=== PATIENT | male | born 1975 | race Caucasian/White ===

== ENCOUNTER 2019-03-29 21:36 | Emergency (ER) | payer MEDICAID ==
[~2019-03-29] VITALS: Ht 182.9 cm; Wt 90.7 kg
[2019-03-29 23:03] LABS: Basophils # (auto) 0.1 uL; Basophils % (auto) 1.2 % (0.0-2.0); Eosinophils # (auto) 0.1 uL; Hematocrit 39.6 % (41.0-53.0); Hemoglobin 13.1 g/dL (13.5-17.5); Lymphocytes # (auto) 3.3 uL; Lymphocytes % (auto) 30.8 % (10.0-50.0); Monocytes # (auto) 1.1 uL; Monocytes % (auto) 10.4 % (0.0-12.0); Neutrophils # (auto) 6.1 uL; Neutrophils % (auto) 56.6 % (37.0-80.0); Platelet Count (auto) 313 10^3/uL (140-450); Red Blood Cells 4.34 10^6/uL (4.5-5.90); White Blood Cell 10.8 10^3/uL (4.4-10.8)
[2019-03-29] MEDS ORDERED: FOLIC ACID 1 MG, MULTIPLE VITAMIN 10 ML, MAGNESIUM SULF SDV 50% 8 MEQ, THIAMINE INJ 100... INJ SCH ×5 (23:30)
[2019-03-29 23:31] LABS: Alanine Aminotransferase 32 U/L (16-61); Albumin 3.9 g/dL (3.4-5.0); Anion Gap 14 (5-15); Aspartate Aminotransferase 41 U/L (15-37); BUN/Creatinine Ratio 14.3; Blood Urea Nitrogen 15 mg/dL (7-18); Calcium 7.9 mg/dL (8.5-10.1); Carbon Dioxide 21 mmol/L (21-32); Chloride 104 mmol/L (98-107); GFR African American 99 mL/min; GFR Non-African American 82 mL/min; Glucose 92 mg/dL (74-106); Potassium 3.1 mmol/L (3.5-5.1); Salicylate 1.8 mg/dL (2.8-20.0); Sodium 139 mmol/L (136-145)
[2019-03-29 23:34] LABS: Acetaminophen < 2.0 ug/mL (10-30)
[2019-03-29 23:36] LABS: Alkaline Phosphatase 62 U/L (45-117); Bilirubin, Total 0.5 mg/dL (0.2-1.0); Total Protein 7.9 g/dL (6.4-8.2)
[2019-03-29] MEDS ORDERED: MVI in SODIUM CHLORIDE 0.9% 1,010 ML ONE (23:52)
[2019-03-30 03:06] VITALS: BP 125/76
[2019-03-30] MEDS ORDERED: MULTCAP45 OR (21:53)
[2019-03-30] MEDS ORDERED: OLAN10TA29 PO (21:53)
[2019-03-30] MEDS ORDERED: BUPR200T PO (21:53)
== END 2019-03-30 03:41 | disposition home or self-care (01) ==
LOC: EDBD 21:36 → ER 21:40
DX: G92 Toxic encephalopathy (principal); F15.10 Other stimulant abuse, uncomplicated; R41.82 Altered mental status, unspecified; F10.129 Alcohol abuse with intoxication, unspecified; Y90.1 Blood alcohol level of 20-39 mg/100 ml
CPT/HCPCS: 36415; 80053; 80320; 80329; 83735; 84484; 85025; 94761; 96365; 99283; J3411; J3475; J7030

== ENCOUNTER 2019-03-30 19:35 | Emergency (ER) | payer MEDICAID ==
[~2019-03-30] VITALS: Ht 182.9 cm; Wt 86.2 kg
[2019-03-30] MEDS ORDERED: MULTCAP45 OR (21:53)
[2019-03-30] MEDS ORDERED: OLAN10TA29 PO (21:53)
[2019-03-30] MEDS ORDERED: BUPR200T PO (21:53)
[2019-03-30 22:13] LABS: Basophils # (auto) 0.1 uL; Basophils % (auto) 0.8 % (0.0-2.0); Eosinophils # (auto) 0.2 uL; Eosinophils % (auto) 3.4 % (0.0-7.0); Hematocrit 39.8 % (41.0-53.0); Hemoglobin 13.4 g/dL (13.5-17.5); Lymphocytes # (auto) 3.3 uL; Lymphocytes % (auto) 44.3 % (10.0-50.0); Mean Corpuscular Hemoglobin 30.9 pg (28.0-32.0); Mean Corpuscular Hgb Conc. 33.8 g/dL (32.0-36.0); Mean Corpuscular Volume 91.6 fL (80.0-100.0); Monocytes # (auto) 0.7 uL; Monocytes % (auto) 10.1 % (0.0-12.0); Neutrophils % (auto) 41.4 % (37.0-80.0); Nucleated Red Blood Cells % 0.1 %; Platelet Count (auto) 294 10^3/uL (140-450); Red Blood Cells 4.34 10^6/uL (4.5-5.90); Red Cell Distribution Width 14.1 % (11.8-14.3); White Blood Cell 7.4 10^3/uL (4.4-10.8)
[2019-03-30 22:19] LABS: Albumin 3.7 g/dL (3.4-5.0); Potassium 3.7 mmol/L (3.5-5.1)
[2019-03-30 22:22] LABS: BUN/Creatinine Ratio 12.9; Bilirubin, Total 0.4 mg/dL (0.2-1.0); Total Protein 7.4 g/dL (6.4-8.2)
[2019-03-30] MEDS ORDERED: ONDANSETRON ODT 4 MG TAB PO ONE (23:15)
[2019-03-30 23:46] LABS: Amphetamine Screen, Urine POSITIVE (NEGATIVE); Barbiturate Scree,Urine NEGATIVE (NEGATIVE); Benzodiazephine Screen, Urine POSITIVE (NEGATIVE); Cannabinoid Screen, Urine NEGATIVE (NEGATIVE); Cocaine Screen, Urine NEGATIVE (NEGATIVE); Opiate Scree,Urine NEGATIVE (NEGATIVE); Phencyclidine Screen, Urine NEGATIVE (NEGATIVE); Urine Bacteria FEW /hpf (None Seen); Urine Blood Negative /uL (Negative); Urine Specific Gravity 1.009 (1.001-1.035); Urine WBC 1 /hpf (0 - 3)
[2019-03-31] MEDS ORDERED: FOLIC ACID 1 MG, MULTIPLE VITAMIN 10 ML, MAGNESIUM SULF SDV 50% 8 MEQ, THIAMINE INJ 100... INJ SCH ×5 (01:45)
[2019-03-31] MEDS ORDERED: SODIUM CHLORIDE 0.9% 1,000 ML IV ONE (01:45)
[2019-03-31] MEDS ORDERED: MVI in SODIUM CHLORIDE 0.9% 1,010 ML ONE (03:02)
[2019-03-31] MEDS ORDERED: THIAMINE 100mg/ml INJ (200mg/2ml VIAL) ONE (03:02)
[2019-03-31] MEDS ORDERED: FOLIC ACID 1 MG TAB ONE (03:02)
[2019-03-31] MEDS ORDERED: ONDANSETRON ODT 4 MG TAB PO PRN (07:45)
[2019-03-31] MEDS: LORazepam 0.5 MG TAB PO PRN (08:34)
[2019-04-01] MEDS: LORazepam 0.5 MG TAB PO PRN ×2 (07:06→20:36)
[2019-04-01] MEDS ORDERED: OLANZapine 5 MG TAB PO PRN (18:45)
[2019-04-02 10:07] VITALS: BP 99/58
== END 2019-04-02 10:28 | disposition short-term general hospital (02) ==
LOC: ER 19:35
DX: R45.851 Suicidal ideations (principal); F10.229 Alcohol dependence with intoxication, unspecified
CPT/HCPCS: 36415; 71045; 80053; 80307; 80320; 81001; 85025; 93005; 96365; 99285; Q0162

== ENCOUNTER 2019-06-28 11:11 | Inpatient (IN) | payer MEDICAID ==
[~2019-06-28] VITALS: Ht 182.9 cm; Wt 86.6 kg
[~2019-06-28 11:11] MED LIST: BUPR200T PO; MULTCAP45 OR; OLAN10TA29 PO
[2019-06-28] MEDS ORDERED: SODIUM CHLORIDE 0.9% 1,000 ML IVB ONE (11:37)
[2019-06-28] MEDS ORDERED: THIAMINE 100mg/ml INJ (200mg/2ml VIAL) IV ONE (11:45)
[2019-06-28] MEDS ORDERED: ONDANSETRON HCL 4 MG/2 ML VIAL IV ONE (11:45)
[2019-06-28 12:08] LABS: Basophils # (auto) 0 uL; Basophils % (auto) 0.5 % (0.0-2.0); Eosinophils # (auto) 0 uL; Eosinophils % (auto) 0.6 % (0.0-7.0); Hematocrit 42.5 % (41.0-53.0); Hemoglobin 14.4 g/dL (13.5-17.5); Lymphocytes % (auto) 36.8 % (10.0-50.0); Mean Corpuscular Hemoglobin 31.2 pg (28.0-32.0); Mean Corpuscular Hgb Conc. 33.8 g/dL (32.0-36.0); Mean Corpuscular Volume 92.2 fL (80.0-100.0); Monocytes # (auto) 0.9 uL; Monocytes % (auto) 10.5 % (0.0-12.0); Neutrophils # (auto) 4.2 uL; Neutrophils % (auto) 51.6 % (37.0-80.0); Platelet Count (auto) 307 10^3/uL (140-450); Red Blood Cells 4.61 10^6/uL (4.5-5.90); Red Cell Distribution Width 15.5 % (11.8-14.3); White Blood Cell 8.1 10^3/uL (4.4-10.8)
[2019-06-28] MEDS ORDERED: LORazepam 2MG/ML-1ML VIAL IV ONE (12:30)
[2019-06-28] MEDS ORDERED: cefTRIAXone 1GM/50ML D5W 50 ML IV ONE (12:30)
[2019-06-28 12:38] LABS: Calcium 8.4 mg/dL (8.5-10.1); Potassium 3.9 mmol/L (3.5-5.1)
[2019-06-28 12:40] LABS: Albumin 3.9 g/dL (3.4-5.0); BUN/Creatinine Ratio 13.6; Magnesium 2.3 mg/dL (1.6-2.6)
[2019-06-28 12:42] LABS: Salicylate < 1.7 mg/dL (2.8-20.0)
[2019-06-28 12:43] LABS: Bilirubin, Total 0.3 mg/dL (0.2-1.0)
[2019-06-28 12:44] LABS: Acetaminophen < 2.0 ug/mL (10-30)
[2019-06-28] MEDS: FOLIC ACID 1 MG, MULTIPLE VITAMIN 10 ML, MAGNESIUM SULF SDV 50% 8 MEQ, THIAMINE INJ 100... INJ SCH ×5 (13:05)
[2019-06-28] MEDS ORDERED: NITROGLYCERIN 0.4 MG SL TAB SL PRN (16:30)
[2019-06-28] MEDS ORDERED: LORazepam 2MG/ML-1ML VIAL IV PRN (16:30)
[2019-06-28] MEDS ORDERED: HYDROcodone-ACET 5/325MG TAB PO PRN (16:30)
[2019-06-28] MEDS ORDERED: ACETAMINOPHEN 500 MG TAB PO PRN (16:30)
[2019-06-28] MEDS ORDERED: MORPHINE SULF INJ 2 MG/ML SYRINGE 1ML IV PRN (16:30)
[2019-06-28] MEDS ORDERED: AZITHROMYCIN 250 MG TAB PO ONE (16:45)
[2019-06-28 17:50] VITALS: BP 124/88
--- NOTE | 2019-06-28 18:13 | NUR ---
PT ARRIVED FROM ER ABOUT 1750. A/O X 4. ANSWERED QUESTIONS APPROPRIATELY, SITTER IS AT BEDSIDE. COOPERATIVE. BANANA BAG RUNNING . ORIENTED TO ROOM AND CALL ADAMES. WILL CONTINUE TO MONITOR.
--- NOTE | 2019-06-28 18:51 | NUR ---
WHEN ASKED IF PT WAS/ IS SUICIDAL, HE STATED "YES. I WOULD JUST NOT EAT OR DRINK AND OD ON DRUGS TILL I ". INFORMED PT THAT A TELEPSYCH WAS ORDERED. PT STATED HE HAS HAD ONE IN THE PAST AND DOES NOT WISH TO HAVE ONE AGAIN. SITTER REMAINS AT BEDSIDE.
--- NOTE | 2019-06-28 20:00 | NUR ---
OPENING NOTE RECEIVED REPORT FROM DAYSHIFT RN. ASSUMING ROLE OF CARE OF PATIENT AT THIS TIME. PATIENT SHOWING NO SIGN OF DISTRESS, SHORTNESS OF BREATH, AND PATIENT DENIES ANY PAIN AT THIS TIME. PATIENT EDUCATED ON PLAN OF CARE FOR THE NIGHT AND PATIENT VERBALIZED UNDERSTANDING. EXPLAINED TO PATIENT THAT THERE WERE ORDERS FOR A TELE PSYCH CONSULT. PATIENT AT THIS TIME TIME IS ALERT AND ORIENTED BUT REFUSES TO DO A CONSULT AT THIS TIME. BED LOWERED, CALL LIGHT WITHIN REACH, AND PATIENT WILL BE ROUNDED ON EVERY HOUR AND NEEDED.
[2019-06-28 22:00] VITALS: BP 111/72
[2019-06-29 05:00] VITALS: BP 103/69
--- NOTE | 2019-06-29 07:50 | NUR ---
Opening Shift Note Assumed care of patient, awake but very drowsy. No S/S of distress/SOB or pain. Instructed on POC and to call for assist PRN, will continue to monitor for changes Q1hr and PRN.
[2019-06-29 08:00] VITALS: BP 108/68
[2019-06-29] MEDS: ONDANSETRON HCL 4 MG/2 ML VIAL IV PRN ×2 (08:08→19:33)
[2019-06-29] MEDS: AZITHROMYCIN 250 MG TAB PO SCH (09:46)
[2019-06-29] MEDS: FAMOTIDINE 20 MG TAB PO SCH (09:47)
[2019-06-29] MEDS ORDERED: OLANZapine 5 MG TAB PO SCH (10:00)
--- NOTE | 2019-06-29 11:12 | NUR ---
Rounding Dr. Santana at bedside. Patient agrees to do tele psych.
[2019-06-29] MEDS: OLANZapine 5 MG TAB PO SCH (11:30)
--- NOTE | 2019-06-29 13:00 | NUR ---
Pt refused afternoon vitals @1300. Stated he was not feeling well and wanted to sleep.
[2019-06-29] MEDS: FOLIC ACID 1 MG, MULTIPLE VITAMIN 10 ML, MAGNESIUM SULF SDV 50% 8 MEQ, THIAMINE INJ 100... INJ SCH ×5 (13:10)
--- NOTE | 2019-06-29 13:10 | NUR ---
Tele Psych Brought tele psych machine into the room for patient. The patient then refused, to do tele psych. He states that he doesn't want the procedure done.
--- NOTE | 2019-06-29 14:57 | NUR ---
Called Moni Phan [facility] CM and informed her that pt needs to be placed on [facility] Complex Case Management system due to his on going social issues
--- NOTE | 2019-06-29 16:30 | NUR ---
IV Patient complained of pain to IV site. Same noted to be swollen. I informed the patient that his IV is infiltrated and he needs a new IV. The patient began to use curse words asking why it was not properly done the first time. Patient was informed that IV's do go bad at times. I gather supplies and went to insert a new IV. The patient refused and asked for it to be done later.
[2019-06-29 16:52] VITALS: BP 113/77
[2019-06-29] MEDS: LORazepam 2MG/ML-1ML VIAL IV PRN (19:33)
--- NOTE | 2019-06-29 19:40 | NUR ---
IV TO RIGHT FOREARM removed IV DC'd with clean sterile technique, catheter fully intact. Pressure dressing applied to site. Patient tolerated well.
--- NOTE | 2019-06-29 19:40 | NUR ---
IV insertion IV access obtained, via clean sterile technique by inserting 22 gauge catheter at RIGHT HAND after 1 attempt(s). IV secured properly. No trauma to site. Patient tolerated well.
--- NOTE | 2019-06-29 20:00 | NUR ---
OPENING NOTE RECEIVED REPORT FROM DAYSHIFT RN. ASSUMING ROLE OF CARE OF PATIENT AT THIS TIME. PATIENT SHOWING NO SIGN OF DISTRESS, SHORTNESS OF BREATH, AND PATIENT DENIES ANY PAIN AT THIS TIME. PATIENT EDUCATED ON PLAN OF CARE FOR THE NIGHT AND PATIENT VERBALIZED UNDERSTANDING. BED LOWERED, CALL LIGHT WITHIN REACH, AND PATIENT WILL BE ROUNDED ON EVERY HOUR AND NEEDED.
[2019-06-29 22:00] VITALS: BP 94/64
--- NOTE | 2019-06-30 02:28 | NUR ---
IV removal IV DC'd with clean sterile technique, catheter fully intact. Pressure dressing applied to site. Patient tolerated well. IV insertion IV access obtained, via clean sterile technique by inserting 22 gauge catheter at LEFT HAND after 3 attempt(s). IV secured properly. No trauma to site. Patient tolerated well.
[2019-06-30] MEDS: LORazepam 2MG/ML-1ML VIAL IV PRN ×2 (02:30→09:25)
--- NOTE | 2019-06-30 05:00 | NUR ---
PT REFUSED VITALS X3 RN NOTIFIED.
--- NOTE | 2019-06-30 07:46 | NUR ---
Opening Shift Note Assumed care of patient, asleep but easily aroused. Patient prefers not to be disturbed at the moment. No S/S of distress/SOB or pain. Will follow up with instructions POC and to call for assist PRN, will continue to monitor for changes Q1hr and PRN. Sitter at bedside.
[2019-06-30] MEDS: OLANZapine 5 MG TAB PO SCH (09:24)
[2019-06-30] MEDS: FAMOTIDINE 20 MG TAB PO SCH (09:25)
[2019-06-30] MEDS: AZITHROMYCIN 250 MG TAB PO SCH (09:25)
[2019-06-30] MEDS: FOLIC ACID 1 MG, MULTIPLE VITAMIN 10 ML, MAGNESIUM SULF SDV 50% 8 MEQ, THIAMINE INJ 100... INJ SCH ×5 (12:53)
--- NOTE | 2019-06-30 12:55 | NUR ---
Rounding Dr. Santana at bedside.
--- NOTE | 2019-06-30 13:00 | NUR ---
assessment Patient is a 44 year old male who is alert and oriented. Patients cognitive abilities are intact. Prior to admission patient lived at a [employer] program house and functioned independently per patient. The warranty administrator of the program is Kiersten [phone]. Patient informed me he is able to care for his own ADLs. Per patient he will return home to his prior living arrangements post discharge. Patient informed me he really does not want to talk and he has no post discharge needs. I informed patient he has a right to speak to a geriatric social work professor regarding all care. I informed patient he has a right to participate in any and all discharge planning. Patient does not have a POA and advanced directive. I have offered patient information on POA and advanced directives. I informed the patient the advantages and benefits of having an Advanced Directive. Patient verbalized understanding and agreed to discharge plan. Addendum: 06/30/19 at 1553 by Юлия GONZALEZ Amended: Links added.
--- NOTE | 2019-06-30 13:00 | NUR ---
Tele psych consult Patient refused tele psych consult and said he wants to be discharged so he can go see his case management assistant before 4pm. Patient was on the phone talking with someone (he states his case management assistant) at the time of our conversation.
[2019-06-30 13:21] VITALS: BP 128/74
--- NOTE | 2019-06-30 14:29 | NUR ---
Discharge instructions given as ordered. Encourage to follow up with PMD as instructed. All questions and concerns addressed. Patient verbalized understanding. Medication reconciliation form completed and copy given to patient. IV removed with catheter intact and pressure dressing applied. Patient to lobby with all personal belongings, accompanied by staff. No distress noted at time of departure. Bus pass given.
== END 2019-06-30 14:10 | disposition home or self-care (01) | DRG 139 ==
LOC: ER 11:11 → EDBD 11:11 → OVERFLOW 11:12 → EAST 17:44
PROVIDERS: ADMIT Nurse Practitioner Acute Care; ATTEND Internal Medicine
DX: J18.1 Lobar pneumonia, unspecified organism (principal); F25.9 Schizoaffective disorder, unspecified; F10.239 Alcohol dependence with withdrawal, unspecified; F31.9 Bipolar disorder, unspecified; F41.9 Anxiety disorder, unspecified; Z59.0 Homelessness; F15.90 Other stimulant use, unspecified, uncomplicated; F19.10 Other psychoactive substance abuse, uncomplicated
CPT/HCPCS: 36415; 71045; 80053; 80320; 80329; 83605; 83735; 85025; 87040; 93005; 94761; 96361; 96365; 96368; 96375; G0378; J0696; J2405

== ENCOUNTER 2019-09-10 18:50 | Emergency (ER) | payer MEDICAID ==
[~2019-09-10] VITALS: Ht 182.9 cm; Wt 90.7 kg
[2019-09-10] MEDS ORDERED: MVI in SODIUM CHLORIDE 0.9% 1,010 ML IV ONE (18:52)
[2019-09-10] MEDS ORDERED: THIAMINE 100mg/ml INJ (200mg/2ml VIAL) IV ONE (19:00)
[2019-09-10] MEDS ORDERED: SODIUM CHLORIDE 0.9% 1,000 ML IV ONE ×2 (19:00→21:45)
[2019-09-10] MEDS: MAGNESIUM SULFATE 1GM/100ML 100 ML IV SCH (20:00)
[2019-09-10 20:19] LABS: Basophils # (auto) 0 uL; Basophils % (auto) 0.5 % (0.0-2.0); Eosinophils # (auto) 0.1 uL; Eosinophils % (auto) 0.7 % (0.0-7.0); Hematocrit 38.4 % (41.0-53.0); Hemoglobin 13.1 g/dL (13.5-17.5); Lymphocytes # (auto) 2.4 uL; Lymphocytes % (auto) 23.6 % (10.0-50.0); Mean Corpuscular Hemoglobin 31.7 pg (28.0-32.0); Mean Corpuscular Hgb Conc. 34.2 g/dL (32.0-36.0); Mean Corpuscular Volume 92.5 fL (80.0-100.0); Monocytes % (auto) 9.6 % (0.0-12.0); Neutrophils # (auto) 6.7 uL; Neutrophils % (auto) 65.6 % (37.0-80.0); Platelet Count (auto) 277 10^3/uL (140-450); Red Blood Cells 4.15 10^6/uL (4.5-5.90); Red Cell Distribution Width 15.3 % (11.8-14.3); White Blood Cell 10.2 10^3/uL (4.4-10.8)
[2019-09-10 20:37] LABS: Salicylate < 1.7 mg/dL (2.8-20.0)
[2019-09-10 20:56] LABS: Acetaminophen < 2.0 ug/mL (10-30)
[2019-09-10 21:30] LABS: Anion Gap 7 (5-15); Blood Urea Nitrogen 8 mg/dL (7-18); Carbon Dioxide 27 mmol/L (21-32); Chloride 107 mmol/L (98-107); Glucose 95 mg/dL (74-106); Potassium 3.3 mmol/L (3.5-5.1); Sodium 141 mmol/L (136-145)
[2019-09-10 21:31] LABS: Alanine Aminotransferase 24 U/L (16-61); Albumin 3.1 g/dL (3.4-5.0); Alkaline Phosphatase 87 U/L (45-117); Aspartate Aminotransferase 19 U/L (15-37); Bilirubin, Total 0.2 mg/dL (0.2-1.0); Calcium 7.4 mg/dL (8.5-10.1); GFR African American 201 mL/min; GFR Non-African American 166 mL/min; Magnesium 2.1 mg/dL (1.6-2.6); Total Protein 7.5 g/dL (6.4-8.2)
[2019-09-10] MEDS ORDERED: ALUM & MAG HYDROX-SIMETH LIQ(MAALOX) 30 ML PO ONE (23:15)
[2019-09-11] MEDS ORDERED: SODIUM CHLORIDE 0.9% 1,000 ML IV ONE ×2 (00:45)
[2019-09-11] MEDS: MAGNESIUM SULFATE 1GM/100ML 100 ML IV SCH (01:00)
[2019-09-11] MEDS ORDERED: LORazepam 0.5 MG TAB PO ONE (06:00)
[2019-09-11] MEDS ORDERED: ONDANSETRON HCL 4 MG/2 ML VIAL IV ONE ×2 (06:00→10:00)
[2019-09-11 09:25] LABS: Urine WBC None Seen /hpf (0 - 3)
[2019-09-11 09:46] LABS: Amphetamine Screen, Urine NEGATIVE (NEGATIVE); Barbiturate Scree,Urine NEGATIVE (NEGATIVE); Benzodiazephine Screen, Urine NEGATIVE (NEGATIVE); Cannabinoid Screen, Urine NEGATIVE (NEGATIVE); Cocaine Screen, Urine NEGATIVE (NEGATIVE); Opiate Scree,Urine NEGATIVE (NEGATIVE); Phencyclidine Screen, Urine NEGATIVE (NEGATIVE)
[2019-09-11] MEDS ORDERED: ONDANSETRON HCL 4 MG/2 ML VIAL ONE (09:54)
[2019-09-11 10:40] LABS: Urine Bacteria NONE SEEN /hpf (None Seen); Urine Blood Negative /uL (Negative); Urine Specific Gravity 1.013 (1.001-1.035)
[2019-09-11 14:55] VITALS: BP 153/84
== END 2019-09-11 15:03 | disposition home or self-care (01) ==
LOC: EDBD 18:50 → ER 18:52
DX: F10.229 Alcohol dependence with intoxication, unspecified (principal); F19.10 Other psychoactive substance abuse, uncomplicated; R42 Dizziness and giddiness; D64.9 Anemia, unspecified; F25.9 Schizoaffective disorder, unspecified; F32.9 Major depressive disorder, single episode, unspecified; Y90.1 Blood alcohol level of 20-39 mg/100 ml; Z59.0 Homelessness
CPT/HCPCS: 36415; 80053; 80307; 80320; 80329; 81001; 83735; 85025; 96361; 96374; 96375; 96376; 99283; J2405; J3411; J3475; J7030

== ENCOUNTER 2019-09-14 15:59 | Emergency (ER) | payer MEDICAID ==
[~2019-09-14] VITALS: Ht 180.3 cm; Wt 81.6 kg
[2019-09-14 16:16] VITALS: BP 132/87
[2019-09-14] MEDS ORDERED: SODIUM CHLORIDE 0.9% 1,000 ML IV ONE ×2 (16:41)
[2019-09-14] MEDS ORDERED: THIAMINE 100mg/ml INJ (200mg/2ml VIAL) IV ONE (16:45)
[2019-09-14] MEDS ORDERED: cefTRIAXone 1GM/50ML D5W 50 ML IV ONE (17:00)
== END 2019-09-14 21:11 | disposition left against medical advice (07) ==
LOC: EDBD 15:59 → ER 15:59
DX: J40 Bronchitis, not specified as acute or chronic (principal); F10.129 Alcohol abuse with intoxication, unspecified; Z59.0 Homelessness; Y90.9 Presence of alcohol in blood, level not specified
CPT/HCPCS: 99283; J7030

== ENCOUNTER 2019-09-19 18:28 | Emergency (ER) | payer MEDICAID ==
[~2019-09-19] VITALS: Ht 182.9 cm; Wt 72.6 kg
[2019-09-19 19:48] LABS: Basophils # (auto) 0 uL; Basophils % (auto) 0.5 % (0.0-2.0); Eosinophils # (auto) 0 uL; Eosinophils % (auto) 0.1 % (0.0-7.0); Hematocrit 47.6 % (41.0-53.0); Hemoglobin 16.1 g/dL (13.5-17.5); Lymphocytes # (auto) 2.4 uL; Mean Corpuscular Hgb Conc. 33.8 g/dL (32.0-36.0); Mean Corpuscular Volume 91.8 fL (80.0-100.0); Monocytes # (auto) 0.6 uL; Monocytes % (auto) 8.7 % (0.0-12.0); Neutrophils # (auto) 4.2 uL; Neutrophils % (auto) 57.7 % (37.0-80.0); Platelet Count (auto) 254 10^3/uL (140-450); Red Blood Cells 5.19 10^6/uL (4.5-5.90); Red Cell Distribution Width 15.1 % (11.8-14.3); White Blood Cell 7.4 10^3/uL (4.4-10.8)
[2019-09-19] MEDS ORDERED: SODIUM CHLORIDE 0.9% 1,000 ML IV ONE (19:51)
[2019-09-19] MEDS ORDERED: ONDANSETRON HCL 4 MG/2 ML VIAL IV ONE (20:00)
[2019-09-19 20:02] LABS: Albumin 3.7 g/dL (3.4-5.0); BUN/Creatinine Ratio 12.2; Calcium 8.2 mg/dL (8.5-10.1); Potassium 3.7 mmol/L (3.5-5.1)
[2019-09-19 20:05] LABS: Bilirubin, Total 0.3 mg/dL (0.2-1.0); Total Protein 9.4 g/dL (6.4-8.2)
[2019-09-19 20:36] LABS: Amylase 81 U/L (25-115); Lipase 294 U/L (73-393)
[2019-09-19 21:39] LABS: Lactic Acid w/Reflex 2.7 mmol/L (0.4-2.0)
[2019-09-19] MEDS ORDERED: LORazepam 2MG/ML-1ML VIAL IV ONE (22:30)
[2019-09-19 23:08] LABS: Urine Bacteria NONE SEEN /hpf (None Seen); Urine Blood Negative /uL (Negative); Urine Specific Gravity 1.013 (1.001-1.035); Urine WBC <1 /hpf (0 - 3)
[2019-09-19 23:23] LABS: Amphetamine Screen, Urine NEGATIVE (NEGATIVE); Barbiturate Scree,Urine NEGATIVE (NEGATIVE); Benzodiazephine Screen, Urine NEGATIVE (NEGATIVE); Cannabinoid Screen, Urine NEGATIVE (NEGATIVE); Cocaine Screen, Urine NEGATIVE (NEGATIVE)
[2019-09-19 23:31] LABS: Opiate Scree,Urine NEGATIVE (NEGATIVE); Phencyclidine Screen, Urine NEGATIVE (NEGATIVE)
[2019-09-20] MEDS ORDERED: THIAMINE 100mg/ml INJ (200mg/2ml VIAL) IV ONE
[2019-09-20 00:25] VITALS: BP 116/87
== END 2019-09-20 00:35 | disposition home or self-care (01) ==
LOC: ER 18:28 → EDBD 18:28 → ER 09-20 00:35
DX: G92 Toxic encephalopathy (principal); R10.84 Generalized abdominal pain; F10.129 Alcohol abuse with intoxication, unspecified; R45.1 Restlessness and agitation; Y90.8 Blood alcohol level of 240 mg/100 ml or more
CPT/HCPCS: 36415; 74176; 80053; 80307; 81001; 82150; 83605; 83690; 84484; 85025; 96361; 96374; 96375; 99284; J2060; J2405; J3411; J7030

== ENCOUNTER 2021-07-27 10:08 | Emergency (ER) | payer MEDICAID ==
[~2021-07-27] VITALS: Ht 182.9 cm; Wt 81.6 kg
[~2021-07-27 10:08] MED LIST changes: +BUPR1TAB82 PO; -BUPR200T PO; -OLAN10TA29 PO; +OLAN1TAB19 PO
[2021-07-27] MEDS ORDERED: SODIUM CHLORIDE 0.9% 1,000 ML IV ONE ×2 (10:15)
[2021-07-27 11:08] LABS: Basophils # (auto) 0 10 ^3/uL (0-0.2); Basophils % (auto) 0.2 % (0.0-2.0); Eosinophils # (auto) 0 10 ^3/uL (0-0.8); Hematocrit 40.8 % (41.0-53.0); Lymphocytes % (auto) 9.3 % (10.0-50.0); Mean Corpuscular Hemoglobin 31.9 pg (28.0-32.0); Mean Corpuscular Hgb Conc. 34.3 g/dL (32.0-36.0); Mean Corpuscular Volume 93.1 fL (80.0-100.0); Monocytes # (auto) 0.8 10 ^3/uL (0-1.3); Monocytes % (auto) 7.2 % (0.0-12.0); Neutrophils # (auto) 9.1 10 ^3/uL (1.6-8.6); Neutrophils % (auto) 83.3 % (37.0-80.0); Red Blood Cells 4.38 10^6/uL (4.5-5.90); Red Cell Distribution Width 16.2 % (11.8-14.3); White Blood Cell 10.9 10^3/uL (4.4-10.8)
[2021-07-27 11:24] LABS: Chloride 97 mmol/L (98-107); Potassium 3.7 mmol/L (3.5-5.1); Sodium 135 mmol/L (136-145)
[2021-07-27] MEDS ORDERED: LORazepam 2MG/ML-1ML VIAL IV ONE ×2 (11:30→14:30)
[2021-07-27 11:32] LABS: Alanine Aminotransferase 77 U/L (16-61); Alkaline Phosphatase 75 U/L (45-117); Anion Gap 12 (5-15); Aspartate Aminotransferase 80 U/L (15-37); BUN/Creatinine Ratio 9.6; Bilirubin, Total 0.8 mg/dL (0.2-1.0); Blood Urea Nitrogen 8 mg/dL (7-18); Calcium 9.8 mg/dL (8.5-10.1); Carbon Dioxide 26 mmol/L (21-32); GFR African American 129 mL/min; GFR Non-African American 106 mL/min; Glucose 96 mg/dL (74-106); Total Protein 8.4 g/dL (6.4-8.2)
[2021-07-27 15:21] LABS: Urine Bacteria NONE SEEN /hpf (None Seen); Urine Blood Negative /uL (Negative); Urine Mucus FEW (None Seen); Urine Specific Gravity 1.016 (1.001-1.035); Urine WBC 1 /hpf (0 - 3)
[2021-07-27 18:34] VITALS: BP 141/94
[2021-07-27] MEDS ORDERED: MIRTAZAPINE 30 MG TAB PO SCH (22:00)
[2021-07-27] MEDS ORDERED: GABAPENTIN 300 MG CAP PO SCH (22:00)
[2021-07-27] MEDS ORDERED: traZODone HCL 50 MG TAB PO SCH (22:00)
[2021-07-28] MEDS ORDERED: THIAMINE HCL 100 MG TAB PO SCH (10:00)
== END 2021-07-28 06:56 | disposition home or self-care (01) ==
LOC: ER 10:08
DX: F19.10 Other psychoactive substance abuse, uncomplicated (principal); F41.9 Anxiety disorder, unspecified; R45.851 Suicidal ideations; R55 Syncope and collapse; F32.9 Major depressive disorder, single episode, unspecified; F20.9 Schizophrenia, unspecified; F10.10 Alcohol abuse, uncomplicated; Y90.9 Presence of alcohol in blood, level not specified
CPT/HCPCS: 36415; 71045; 80053; 81001; 84484; 85025; 96361; 96374; 96375; 99284; J2060; J7030

== ENCOUNTER 2021-08-08 15:01 | Emergency (ER) | payer MEDICAID ==
[~2021-08-08] VITALS: Ht 180.3 cm; Wt 88.5 kg
[2021-08-08] MEDS ORDERED: SODIUM CHLORIDE 0.9% 1,000 ML IVB ONE (15:15)
[2021-08-08 15:46] LABS: Basophils # (auto) 0.1 10 ^3/uL (0-0.2); Basophils % (auto) 1.3 % (0.0-2.0); Eosinophils # (auto) 0 10 ^3/uL (0-0.8); Eosinophils % (auto) 0.6 % (0.0-7.0); Hematocrit 40.1 % (41.0-53.0); Hemoglobin 13.2 g/dL (13.5-17.5); Lymphocytes # (auto) 2.9 10 ^3/uL (0.4-5.4); Lymphocytes % (auto) 53.4 % (10.0-50.0); Mean Corpuscular Hemoglobin 31.4 pg (28.0-32.0); Mean Corpuscular Hgb Conc. 32.8 g/dL (32.0-36.0); Mean Corpuscular Volume 95.7 fL (80.0-100.0); Monocytes # (auto) 0.4 10 ^3/uL (0-1.3); Monocytes % (auto) 7.8 % (0.0-12.0); Neutrophils % (auto) 36.9 % (37.0-80.0); Nucleated Red Blood Cells % 0.1 %; Red Blood Cells 4.19 10^6/uL (4.5-5.90); Red Cell Distribution Width 16.4 % (11.8-14.3); White Blood Cell 5.5 10^3/uL (4.4-10.8)
[2021-08-08 15:56] LABS: Albumin 3.5 g/dL (3.4-5.0); BUN/Creatinine Ratio 8.1; Calcium 7.7 mg/dL (8.5-10.1); Potassium 3.4 mmol/L (3.5-5.1)
[2021-08-08 16:00] LABS: Bilirubin, Total 0.2 mg/dL (0.2-1.0); Total Protein 7.5 g/dL (6.4-8.2)
[2021-08-08 19:27] VITALS: BP 143/64
== END 2021-08-08 19:30 | disposition home or self-care (01) ==
LOC: ER 15:01 → EDUNIT# 15:01 → EDBD 15:01 → ER 19:30
DX: F10.129 Alcohol abuse with intoxication, unspecified (principal); I25.2 Old myocardial infarction; Z79.899 Other long term (current) drug therapy; Z88.8 Allergy status to other drugs, medicaments and biological substances; Y90.8 Blood alcohol level of 240 mg/100 ml or more
CPT/HCPCS: 36415; 80053; 80320; 85025; 93005

== ENCOUNTER 2021-08-09 04:43 | Emergency (ER) | payer MEDICAID ==
[~2021-08-09] VITALS: Ht 182.9 cm; Wt 81.6 kg
[2021-08-09 05:40] LABS: Urine Bacteria NONE SEEN /hpf (None Seen); Urine Blood Negative /uL (Negative); Urine Mucus FEW (None Seen); Urine Specific Gravity 1.013 (1.001-1.035); Urine WBC 3 /hpf (0 - 3)
[2021-08-09] MEDS ORDERED: LORazepam 0.5 MG TAB PO ONE ×2 (05:45→09:00)
[2021-08-09 05:51] LABS: Amphetamine Screen, Urine NEGATIVE (NEGATIVE)
[2021-08-09 06:10] LABS: Barbiturate Scree,Urine NEGATIVE (NEGATIVE); Benzodiazephine Screen, Urine NEGATIVE (NEGATIVE); Cannabinoid Screen, Urine NEGATIVE (NEGATIVE); Cocaine Screen, Urine NEGATIVE (NEGATIVE); Opiate Scree,Urine NEGATIVE (NEGATIVE); Phencyclidine Screen, Urine NEGATIVE (NEGATIVE)
[2021-08-09 07:17] LABS: Basophils # (auto) 0 10 ^3/uL (0-0.2); Eosinophils # (auto) 0 10 ^3/uL (0-0.8); Eosinophils % (auto) 0.6 % (0.0-7.0); Hematocrit 38.5 % (41.0-53.0); Hemoglobin 13.1 g/dL (13.5-17.5); Lymphocytes # (auto) 1.9 10 ^3/uL (0.4-5.4); Mean Corpuscular Hemoglobin 32.3 pg (28.0-32.0); Mean Corpuscular Hgb Conc. 33.9 g/dL (32.0-36.0); Mean Corpuscular Volume 95.1 fL (80.0-100.0); Monocytes # (auto) 0.4 10 ^3/uL (0-1.3); Monocytes % (auto) 8.3 % (0.0-12.0); Neutrophils # (auto) 2.4 10 ^3/uL (1.6-8.6); Neutrophils % (auto) 51.1 % (37.0-80.0); Nucleated Red Blood Cells % 0.1 %; Red Blood Cells 4.05 10^6/uL (4.5-5.90); Red Cell Distribution Width 16.5 % (11.8-14.3); White Blood Cell 4.8 10^3/uL (4.4-10.8)
[2021-08-09 07:37] LABS: Acetaminophen < 2.0 ug/mL (10-30); Salicylate < 1.7 mg/dL (2.8-20.0)
[2021-08-09 07:40] LABS: Albumin 3.6 g/dL (3.4-5.0); BUN/Creatinine Ratio 8.5; Potassium 3.6 mmol/L (3.5-5.1)
[2021-08-09 07:47] LABS: Bilirubin, Total 0.3 mg/dL (0.2-1.0); Total Protein 7.9 g/dL (6.4-8.2)
[2021-08-09] MEDS ORDERED: SODIUM CHLORIDE 0.9% 1,000 ML IV ONE (08:00)
[2021-08-09 08:14] LABS: Magnesium 1.9 mg/dL (1.6-2.6)
[2021-08-09 08:19] VITALS: BP 118/74
[2021-08-09] MEDS ORDERED: MIRTAZAPINE 30 MG TAB PO ONE (09:00)
== END 2021-08-09 16:10 | disposition home or self-care (01) ==
LOC: ER 04:43
DX: R45.851 Suicidal ideations (principal); R44.1 Visual hallucinations; F31.9 Bipolar disorder, unspecified; R94.31 Abnormal electrocardiogram [ECG] [EKG]; F41.9 Anxiety disorder, unspecified; Z20.822 Contact with and (suspected) exposure to COVID-19
CPT/HCPCS: 36415; 71046; 74176; 80053; 80307; 80320; 80329; 81001; 83690; 83735; 84443; 85025; 87426; 93005

== ENCOUNTER 2021-10-21 17:48 | Emergency (ER) | payer MEDICAID ==
[~2021-10-21] VITALS: Ht 182.9 cm; Wt 79.4 kg
[2021-10-21 20:24] LABS: Basophils # (auto) 0.1 10 ^3/uL (0-0.2); Basophils % (auto) 0.7 % (0.0-2.0); Lymphocytes # (auto) 1.1 10 ^3/uL (0.4-5.4); Neutrophils % (auto) 74.5 % (37.0-80.0)
[2021-10-21 20:26] LABS: Eosinophils # (auto) 0 10 ^3/uL (0-0.8); Eosinophils % (auto) 0.6 % (0.0-7.0); Hematocrit 34.9 % (41.0-53.0); Hemoglobin 11.8 g/dL (13.5-17.5); Lymphocytes % (auto) 14.6 % (10.0-50.0); Mean Corpuscular Hemoglobin 32.7 pg (28.0-32.0); Mean Corpuscular Hgb Conc. 33.9 g/dL (32.0-36.0); Mean Corpuscular Volume 96.5 fL (80.0-100.0); Monocytes # (auto) 0.7 10 ^3/uL (0-1.3); Monocytes % (auto) 9.6 % (0.0-12.0); Neutrophils # (auto) 5.6 10 ^3/uL (1.6-8.6); Nucleated Red Blood Cells % 0.1 %; Red Blood Cells 3.61 10^6/uL (4.5-5.90); Red Cell Distribution Width 16.8 % (11.8-14.3); White Blood Cell 7.5 10^3/uL (4.4-10.8)
[2021-10-21 20:45] LABS: Albumin 3.1 g/dL (3.4-5.0); Calcium 7.5 mg/dL (8.5-10.1)
[2021-10-21 20:47] LABS: Salicylate < 1.7 mg/dL (2.8-20.0)
[2021-10-21 20:48] LABS: BUN/Creatinine Ratio 10.3; Bilirubin, Total 0.5 mg/dL (0.2-1.0); Total Protein 8.1 g/dL (6.4-8.2)
[2021-10-21 21:00] LABS: Acetaminophen < 2.0 ug/mL (10-30)
[2021-10-21] MEDS ORDERED: KETOROLAC TROMETH 60MG/2ML VIAL IM ONE (21:15)
[2021-10-21] MEDS ORDERED: LORazepam 2MG/ML-1ML VIAL IM ONE (21:15)
[2021-10-21] MEDS ORDERED: ONDANSETRON ODT 4 MG TAB PO ONE (21:15)
[2021-10-21] MEDS ORDERED: POTASSIUM CHL 20 Meq TABLET PO ONE (23:00)
[2021-10-22] MEDS ORDERED: fentaNYL Drip 2500mCg/250mlNS 250 ML IV SCH (00:15)
[2021-10-22 05:36] VITALS: BP 135/91
[2021-10-22] MEDS ORDERED: LORazepam 2MG/ML-1ML VIAL IV ONE (08:15)
[2021-10-22] MEDS ORDERED: SODIUM CHLORIDE 0.9% 1,000 ML IVB ONE (08:15)
== END 2021-10-22 15:00 | disposition left against medical advice (07) ==
LOC: ER 17:48 → EDBD 17:48 → ER 10-22 15:00
DX: R45.851 Suicidal ideations (principal); F32.9 Major depressive disorder, single episode, unspecified; F20.9 Schizophrenia, unspecified; E87.6 Hypokalemia; I25.2 Old myocardial infarction
CPT/HCPCS: 36415; 80053; 80320; 80329; 83690; 85025; 93005; 96372; 99285; J1885; J2060; Q0162

== ENCOUNTER 2022-03-03 12:51 | Emergency (ER) | payer SELFPAY | END 2022-03-03 14:38 | disposition left against medical advice (07) | LOC: ER 12:51 → EDBD 12:51 → ER 14:38 | DX: F10.129 Alcohol abuse with intoxication, unspecified (principal); Y90.9 Presence of alcohol in blood, level not specified; Z98.61 Coronary angioplasty status; Z59.00 Homelessness unspecified; Z88.8 Allergy status to other drugs, medicaments and biological substances; Z53.29 Procedure and treatment not carried out because of patient's decision for other reasons ==

== ENCOUNTER 2022-03-03 16:13 | Emergency (ER) | payer MEDICAID ==
[~2022-03-03] VITALS: Ht 170.2 cm; Wt 68.0 kg
[2022-03-03] MEDS ORDERED: SODIUM CHLORIDE 0.9% 1,000 ML IV ONE (16:30)
[2022-03-03 21:08] LABS: Basophils # (auto) 0 10 ^3/uL (0-0.2); Basophils % (auto) 0.6 % (0.0-2.0); Eosinophils # (auto) 0 10 ^3/uL (0-0.8); Eosinophils % (auto) 0.2 % (0.0-7.0); Hematocrit 40.3 % (41.0-53.0); Hemoglobin 13.5 g/dL (13.5-17.5); Lymphocytes # (auto) 2.2 10 ^3/uL (0.4-5.4); Lymphocytes % (auto) 33.9 % (10.0-50.0); Mean Corpuscular Hemoglobin 31.2 pg (28.0-32.0); Mean Corpuscular Hgb Conc. 33.5 g/dL (32.0-36.0); Mean Corpuscular Volume 93.2 fL (80.0-100.0); Monocytes # (auto) 0.6 10 ^3/uL (0-1.3); Neutrophils # (auto) 3.7 10 ^3/uL (1.6-8.6); Neutrophils % (auto) 56.3 % (37.0-80.0); Red Blood Cells 4.32 10^6/uL (4.5-5.90); Red Cell Distribution Width 16.8 % (11.8-14.3); White Blood Cell 6.5 10^3/uL (4.4-10.8)
[2022-03-03 21:24] LABS: Calcium 7.9 mg/dL (8.5-10.1); Potassium 3.6 mmol/L (3.5-5.1)
[2022-03-03 21:28] LABS: Albumin 3.7 g/dL (3.4-5.0); BUN/Creatinine Ratio 9.5
[2022-03-03 21:32] LABS: Bilirubin, Total 0.4 mg/dL (0.2-1.0); Total Protein 8.3 g/dL (6.4-8.2)
[2022-03-04] VITALS: BP 109/68
== END 2022-03-04 15:14 | disposition left against medical advice (07) ==
LOC: EDBD 16:13 → EDUNIT# 16:13 → ER 16:16
DX: F10.129 Alcohol abuse with intoxication, unspecified (principal); Z88.6 Allergy status to analgesic agent; Y90.8 Blood alcohol level of 240 mg/100 ml or more
CPT/HCPCS: 36415; 80053; 80320; 85025

== ENCOUNTER → 2022-03-04 | Emergency (ER) | payer MEDICAID ==
[~2022-03-04] VITALS: Ht 177.8 cm; Wt 90.7 kg
[2022-03-04 14:50] VITALS: BP 130/74
== END | disposition left against medical advice (07) ==
LOC: EDUNIT# 14:29 → ER 14:30 → EDBD 14:30
DX: M54.9 Dorsalgia, unspecified (principal); R10.9 Unspecified abdominal pain; Z53.21 Procedure and treatment not carried out due to patient leaving prior to being seen by health care provider